=== PATIENT | female | born 1975 | race Two or more races ===

== ENCOUNTER 2023-04-18 21:11 | Emergency (ER) | payer SELFPAY ==
[~2023-04-18] VITALS: Ht 175.3 cm; Wt 56.7 kg
[2023-04-18 21:16] VITALS: BP 141/79; PULSE 112; RESP 20; O2SAT 98
[2023-04-18 21:38] LABS: Basophils # (auto) 0.1 10 ^3/uL (0-0.2); Basophils % (auto) 1.8 % (0.0-2.0); Eosinophils # (auto) 0 10 ^3/uL (0-0.8); Eosinophils % (auto) 0.1 % (0.0-7.0); Hematocrit 38.1 % (36.0-46.0); Hemoglobin 12.5 g/dL (12.2-16.2); Lymphocytes # (auto) 1.7 10 ^3/uL (0.4-5.4); Lymphocytes % (auto) 23.6 % (10.0-50.0); Mean Corpuscular Hemoglobin 29.2 pg (28.0-32.0); Mean Corpuscular Hgb Conc. 32.7 g/dL (32.0-36.0); Mean Corpuscular Volume 89.3 fL (80.0-100.0); Monocytes % (auto) 14.3 % (0.0-12.0); Neutrophils # (auto) 4.3 10 ^3/uL (1.6-8.6); Neutrophils % (auto) 60.2 % (37.0-80.0); Red Blood Cells 4.27 10^6/uL (4.0-5.20); Red Cell Distribution Width 15.3 % (11.8-14.3); White Blood Cell 7.1 10^3/uL (4.4-10.8)
[2023-04-18 21:42] LABS: Chloride 102 mmol/L (98-107); Potassium 3.7 mmol/L (3.5-5.1); Sodium 136 mmol/L (136-145)
[2023-04-18 21:43] LABS: Anion Gap 6 (5-15); Carbon Dioxide 28 mmol/L (20-30)
[2023-04-18 21:48] LABS: BUN/Creatinine Ratio 16.9 (10.0-20.0); Blood Urea Nitrogen 10 mg/dL (9-23); Glucose 108 mg/dL (74-106)
[2023-04-18 21:49] LABS: Blood Alcohol < 3.0 mg/dL (<10)
[2023-04-18 21:51] LABS: Acetaminophen < 2.0 UG/ML (10.0-20.0)
[2023-04-18 21:52] LABS: Salicylate < 3.0 mg/dL (2.8-20.0)
== END 2023-04-18 22:40 | disposition home or self-care (01) ==
LOC: ER 21:11 → EDBD 21:11 → ER 22:40
DX: F19.10 Other psychoactive substance abuse, uncomplicated (principal); R10.2 Pelvic and perineal pain
CPT/HCPCS: 36415; 80048; 80320; 80329; 84702; 85025